=== PATIENT | male | born 1970 | race Caucasian/White ===

== ENCOUNTER 2018-10-25 13:26 | Outpatient (CLI) | payer BC, OTHER | END 2018-10-25 13:27 | disposition home or self-care (01) | LOC: CONVCARE 13:26 | PROVIDERS: ATTEND Orthopaedic Surgery | DX: M25.552 Pain in left hip (principal); M25.551 Pain in right hip | CPT/HCPCS: 73521 ==

== ENCOUNTER 2019-01-12 08:37 | Day surgery (SDC) | payer BC ==
[2019-01-12 09:05] VITALS: O2SAT 95
[2019-01-12] MEDS ORDERED: BUPIVACAINE HCL 0.25% MPF 30 ML SOL INFIL ONE (09:18)
[2019-01-12] MEDS: TRIAMCINOLONE ACETONIDE 40 MG/ML SUS ONE ×4 (09:29→09:37)
[2019-01-12 09:35] VITALS: RESP 16
[2019-01-12 09:47] VITALS: BP 128/83; PULSE 76; TEMP 97.7
== END 2019-01-12 10:04 | disposition home or self-care (01) ==
LOC: SURG 08:37
PROVIDERS: ATTEND Nurse Anesthetist, Certified Registered
DX: M16.0 Bilateral primary osteoarthritis of hip (principal); E11.9 Type 2 diabetes mellitus without complications
CPT/HCPCS: 82962; J3300